=== PATIENT | female | born 1960 | race Caucasian/White ===

== ENCOUNTER 2017-03-18 11:47 | Inpatient (IN) | payer MEDICAID, OTHER ==
[~2017-03-18] VITALS: Ht 152.4 cm; Wt 66.7 kg
[2017-03-18 12:08] VITALS: BP 158/99
[2017-03-18 12:57] LABS: BASOPHILS # (AUTO) 0.2 K/uL (0.00-0.22); EOSINOPHILS # (AUTO) 0.1 K/uL (0-0.4); EOSINOPHILS % (AUTO) 1.3 % (0.0-4.0); HEMATOCRIT 44.1 % (36-48); HEMOGLOBIN 14.7 g/dL (12.0-16.0); LYMPHOCYTES # (AUTO) 2.3 K/uL (2.5-16.5); LYMPHOCYTES % (AUTO) 37.8 % (20.5-51.1); MEAN CORPUSCULAR HEMOGLOBIN 31 pg (27-31); MEAN CORPUSCULAR HGB CONC 33 g/dL (33-37); MEAN CORPUSCULAR VOLUME 92 fL (80-94); MONOCYTES # (AUTO) 0.4 K/uL (0.8-1.0); MONOCYTES % (AUTO) 6.4 % (1.7-9.3); NEUTROPHILS % (AUTO) 50.5 % (42.2-75.2); PLATELET COUNT (AUTO) 310 K/uL (140-450); RED CELL DISTRIBUTION WIDTH 12.6 % (11.6-13.7)
[2017-03-18 13:11] LABS: INR 1.2 (0.8-1.2); PARTIAL THROMBOPLASTIN TIME 31.3 secs (22-35.6)
[2017-03-18 14:11] LABS: ANION GAP 13.6 (8-16); CALCIUM 8.7 mg/dL (8.5-10.1); CARBON DIOXIDE 26.6 mmol/L (21-32); CREATININE 0.6 mg/dL (0.6-1.3); POTASSIUM 3.2 mmol/L (3.5-5.1)
[2017-03-18] MEDS ORDERED: ASPIRIN 81 MG TAB.CHEW PO ONE (14:15)
[2017-03-18 14:17] LABS: ALBUMIN 4.2 g/dL (3.4-5.0); TOTAL BILIRUBIN 0.5 mg/dL (0.0-1.0)
[2017-03-18] MEDS ORDERED: ONDANSETRON 4 MG/2 ML VIAL IVP PRN (14:40)
[2017-03-18] MEDS ORDERED: ACETAMINOPHEN 325 MG TAB PO PRN (14:40)
[2017-03-18] MEDS ORDERED: cefTRIAXone 1,000 MG VIAL ONE (14:47)
[2017-03-18] MEDS ORDERED: MECLIZINE 25 MG TAB PO PRN (14:50)
[2017-03-18 15:10] LABS: APPEARANCE,URINE CLEAR (CLEAR); BILIRUBIN,URINE NEGATIVE (NEGATIVE); BLOOD, URINE 2+ (NEGATIVE); COLOR,URINE COLORLESS (YELLOW); LEUKOCYTE ESTERASE ,URINE TRACE (NEGATIVE); NITRITE, URINE NEGATIVE (NEGATIVE); PROTEIN,URINE NEGATIVE (NEGATIVE); UGLUCOSE NEGATIVE (NEGATIVE); UROBILINOGEN,URINE 0.2 EU/dL (0.2 - 1)
[2017-03-18 15:20] LABS: AMPHETAMINE, URINE NEG. ng/ml (NEG <=1000); BARBITURATE, URINE NEG. ng/ml (NEG <=200); BENZODIAZEPINE, URINE NEG. ng/mL (NEG <=200); CANNABINOID, URINE NEG. ng/mL (NEG <=50); COCAINE, URINE NEG. ng/mL (NEG <=300); OPIATE, URINE NEG. ng/mL (NEG <=2000); PHENCYCLIDINE SCREEN,URINE NEG. ng/mL (NEG <=25)
[2017-03-18 15:21] LABS: MAGNESIUM 2.1 mg/dL (1.8-2.4); PHOSPHORUS 4.4 mg/dL (2.5-4.9)
[2017-03-18 15:52] LABS: RBC,URINE NONE SEEN /HPF (0-5); WBC,URINE NONE SEEN /HPF (0-5)
[2017-03-18 15:53] LABS: BACTERIA,URINE None Seen /HPF (None Seen); SQUAMOUS EPITHELIAL CELL,UR RARE /LPF (0-3 (FEW))
[2017-03-18 15:55] VITALS: BP 136/78
[2017-03-18 16:00] LABS: FREE T4 (FREE THYROXINE) 0.94 ng/dL (0.76-1.46); THYROID STIMULATING HORMONE 1.31 uIU/mL (0.34-3.76)
[2017-03-18] MEDS: NACL 0.9% 1,000 ML IV SCH (16:30)
[2017-03-18] MEDS: PHENAZOPYRIDINE 100 MG TAB PO SCH (17:24)
[2017-03-18] MEDS: HYDROcodone/APAP 7.5/325 MG 1 TAB PO PRN (17:25)
[2017-03-18] MEDS ORDERED: POTASSIUM CHLORIDE 10 MEQ TABER PO SCH (18:00)
[2017-03-18 20:00] VITALS: BP 150/84
[2017-03-18] MEDS: DOCUSATE SODIUM 100 MG GELCAP PO SCH (21:11)
[2017-03-18] MEDS: ATORVASTATIN 20 MG TAB PO SCH (23:35)
[2017-03-18] MEDS: LISINOPRIL 10 MG TAB PO SCH (23:50)
[2017-03-19] VITALS: BP 131/74
[2017-03-19 04:00] VITALS: BP 128/74
[2017-03-19 06:30] LABS: ANION GAP 12.4 (8-16); CALCIUM 8.6 mg/dL (8.5-10.1); CARBON DIOXIDE 26.2 mmol/L (21-32); CREATININE 0.6 mg/dL (0.6-1.3); POTASSIUM 3.6 mmol/L (3.5-5.1)
[2017-03-19 06:38] LABS: MAGNESIUM 2.1 mg/dL (1.8-2.4); PHOSPHORUS 4.6 mg/dL (2.5-4.9)
[2017-03-19 06:39] LABS: HEMATOCRIT 41.6 % (36-48); HEMOGLOBIN 14.1 g/dL (12.0-16.0); MEAN CORPUSCULAR HEMOGLOBIN 31 pg (27-31); MEAN CORPUSCULAR HGB CONC 34 g/dL (33-37); MEAN CORPUSCULAR VOLUME 92 fL (80-94); PLATELET COUNT (AUTO) 281 K/uL (140-450); RED BLOOD CELL COUNT(AUTO) 4.52 MIL/uL (4.20-5.40); WHITE BLOOD COUNT (AUTO) 6.1 K/uL (4.8-10.8)
[2017-03-19 07:21] LABS: EOSINOPHILS % (MANUAL) 2 % (0-4); LYMPHOCYTES % (MANUAL) 36 % (20-46); MONOCYTES % (MANUAL) 5 % (5-12); NEUTROPHILS % (MANUAL) 57 (43-65)
[2017-03-19 08:00] VITALS: BP 129/68
[2017-03-19] MEDS: PHENAZOPYRIDINE 100 MG TAB PO SCH ×3 (09:24→17:39)
[2017-03-19] MEDS: LISINOPRIL 10 MG TAB PO SCH (09:24)
[2017-03-19] MEDS: DOCUSATE SODIUM 100 MG GELCAP PO SCH ×2 (09:24→20:11)
[2017-03-19] MEDS: ASPIRIN 81 MG TAB.CHEW PO SCH (09:25)
[2017-03-19] MEDS: PANTOPRAZOLE 40 MG INJ VIAL IVP SCH (09:25)
[2017-03-19] MEDS: NACL 0.9% 1,000 ML IV SCH (11:28)
[2017-03-19 12:00] VITALS: BP 127/64
[2017-03-19 16:00] VITALS: BP 121/66
[2017-03-19] MEDS: HYDROcodone/APAP 7.5/325 MG 1 TAB PO PRN (17:40)
[2017-03-19 20:00] VITALS: BP 129/74
[2017-03-19] MEDS: ATORVASTATIN 20 MG TAB PO SCH (20:11)
[2017-03-20] VITALS: BP 103/53
[2017-03-20 04:00] VITALS: BP 113/58
[2017-03-20 05:53] LABS: BASOPHILS # (AUTO) 0.2 K/uL (0.00-0.22); BASOPHILS % (AUTO) 4.1 % (0.0-2.0); EOSINOPHILS # (AUTO) 0.1 K/uL (0-0.4); EOSINOPHILS % (AUTO) 2.5 % (0.0-4.0); HEMATOCRIT 40.9 % (36-48); HEMOGLOBIN 13.9 g/dL (12.0-16.0); LYMPHOCYTES # (AUTO) 2.5 K/uL (2.5-16.5); LYMPHOCYTES % (AUTO) 48.3 % (20.5-51.1); MEAN CORPUSCULAR HEMOGLOBIN 31 pg (27-31); MEAN CORPUSCULAR HGB CONC 34 g/dL (33-37); MEAN CORPUSCULAR VOLUME 93 fL (80-94); MONOCYTES # (AUTO) 0.3 K/uL (0.8-1.0); MONOCYTES % (AUTO) 5.9 % (1.7-9.3); NEUTROPHILS # (AUTO) 2.1 K/uL (1.8-7.7); NEUTROPHILS % (AUTO) 39.2 % (42.2-75.2); PLATELET COUNT (AUTO) 286 K/uL (140-450); RED BLOOD CELL COUNT(AUTO) 4.41 MIL/uL (4.20-5.40); WHITE BLOOD COUNT (AUTO) 5.2 K/uL (4.8-10.8)
[2017-03-20] MEDS: NACL 0.9% 1,000 ML IV SCH (06:15)
[2017-03-20 07:18] LABS: CARBON DIOXIDE 26.8 mmol/L (21-32); POTASSIUM 3.8 mmol/L (3.5-5.1)
[2017-03-20 07:19] LABS: CALCIUM 8.3 mg/dL (8.5-10.1); CREATININE 0.6 mg/dL (0.6-1.3)
[2017-03-20 07:33] LABS: MAGNESIUM 2.1 mg/dL (1.8-2.4); PHOSPHORUS 4.1 mg/dL (2.5-4.9)
[2017-03-20 08:00] VITALS: BP 144/75
[2017-03-20] MEDS: HYDROcodone/APAP 7.5/325 MG 1 TAB PO PRN (08:28)
[2017-03-20] MEDS: DOCUSATE SODIUM 100 MG GELCAP PO SCH (08:28)
[2017-03-20] MEDS: PHENAZOPYRIDINE 100 MG TAB PO SCH ×3 (08:28→17:26)
[2017-03-20] MEDS: ASPIRIN 81 MG TAB.CHEW PO SCH (08:28)
[2017-03-20] MEDS: LISINOPRIL 10 MG TAB PO SCH (08:28)
[2017-03-20] MEDS: PANTOPRAZOLE 40 MG INJ VIAL IVP SCH (08:29)
[2017-03-20] MEDS ORDERED: INSULIN LISPRO SLIDING SCALE 100 UNITS/ML VIAL SUBQ PRN (08:40)
[2017-03-20] MEDS ORDERED: DEXTROSE 50% 50 ML SYR IVP PRN (11:50)
[2017-03-20 12:00] VITALS: BP 124/70
[2017-03-20 16:00] VITALS: BP 117/61
[2017-03-20] MEDS ORDERED: METF500T4 PO (16:09)
[2017-03-20] MEDS ORDERED: MECL-272 PO (16:09)
[2017-03-20] MEDS ORDERED: ACET-1182 PO (16:09)
[2017-03-20] MEDS ORDERED: DOCU-67 PO (16:09)
[2017-03-20] MEDS ORDERED: LISI10TA11 PO (16:09)
[2017-03-20] MEDS ORDERED: ASPI81CT27 PO (16:09)
[2017-03-20] MEDS ORDERED: SACC250C4 PO (16:09)
[2017-03-20] MEDS ORDERED: ACET-9529 PO (16:09)
[2017-03-20] MEDS ORDERED: ONDA4TAB PO (16:09)
[2017-03-20] MEDS ORDERED: LEVO750T2 PO (16:09)
[2017-03-20] MEDS ORDERED: PHEN100T90 PO (16:09)
[2017-03-20] MEDS ORDERED: HEPA500055 SUBQ (16:09)
[2017-03-20] MEDS ORDERED: HUMSLIDE SUBQ (16:09)
[2017-03-20] MEDS ORDERED: BLOO1STR10 FS (16:09)
[2017-03-20] MEDS ORDERED: ATOR20TA40 PO (16:09)
[2017-03-20] MEDS ORDERED: BLOOD GLUCOSE MONITORING 1 DEV DEV FS SCH (16:30)
[2017-03-21] MEDS ORDERED: metFORMIN 500 MG TAB PO SCH (08:00)
== END 2017-03-20 18:00 | DRG 48 ==
LOC: MED 11:47 → MTU 14:46
PROVIDERS: ADMIT Family Medicine; ATTEND Family Medicine
DX: G90.9 Disorder of the autonomic nervous system, unspecified (principal); I42.9 Cardiomyopathy, unspecified; N39.0 Urinary tract infection, site not specified; E11.65 Type 2 diabetes mellitus with hyperglycemia; I10 Essential (primary) hypertension; E87.6 Hypokalemia; E78.2 Mixed hyperlipidemia; I25.10 Atherosclerotic heart disease of native coronary artery without angina pectoris; Z86.73 Personal history of transient ischemic attack (TIA), and cerebral infarction without residual deficits; Z56.0 Unemployment, unspecified
CPT/HCPCS: 36415; 70450; 71010; 80048; 80053; 80305; 81001; 82140; 82150; 82948; 83036; 83690; 83735; 83880; 84100; 84439; 84443; 84484; 85025; 85610; 85730; 87040; 87081; 87086; 92526; 93005; 93880; 93925; 96365; 97110; 97116; 97530; 99285; C9113; J0696; J1644; J1815; J2405; J7030; J7060; J8597; Q0092